=== PATIENT | male | born 1995 | race Asian ===

== ENCOUNTER 2018-04-20 17:22 | Emergency (ER) | payer OTHER ==
[2018-04-20] MEDS ORDERED: TDAP ADULT 0.5 ML INJ (BOOSTRIX) IM ONE (18:55)
--- NOTE | 2018-04-20 18:55 | EDPHY ---
H & P Stated Complaint: CUT L ELBOW SKIING Time Seen by Provider: 04/20/18 18:54 HPI/ROS: HPI: This is a 22-year-old male who presents with Chief Complaint: CUT L ELBOW SKIING Location: Left elbow Quality: Injury Duration: 2-4 hours prior to arrival Signs and Symptoms: + bleeding, no radiation, no numbness, no weakness, no tingling, no incontinence, no decreased range of motion, no swelling, + pain, no fever Timing: Acute Severity: Moderate Context: Patient is right-hand dominant, student at [employer], presents with injury to left elbow 2-4 hours prior to arrival while skiing. Patient reports that he fell directly onto his left elbow. Reports immediate, constant, nonradiating pain. Denies LOC/head injury/neck pain/ dizziness/nausea/vomiting/amnesia. Unsure of tetanus status. Patient cut his left elbow with moderate bleeding through his ski jacket. patroller placed Steri-Strips and advised him to go to the emergency room for further evaluation. Denies paresthesias, weakness. Modifying Factors: Direct pressure and Steri-Strips Comment: ROS: A comprehensive 10 system review of systems is otherwise negative aside from elements mentioned in the history of present illness. MEDICAL/SURGICAL/SOCIAL HISTORY: Medical history: Generally healthy. Does not take any regular medications. Surgical history: Denies Social history: Never smoked. Denies drug and alcohol use. CONSTITUTIONAL: Polite and cooperative young adult male, awake and alert , no obvious distress HEENT: Atraumatic and normocephalic. NECK: supple, no midline tenderness, flexion 45 degrees, extension 45 degrees, right and left lateral flexion 45 degrees. No meningismus. Cardiovascular: Normal S1/S2, regular rate, regular rhythm, without murmur rub or gallop. PULMONARY/CHEST: Symmetrical and nontender. no crepitus. Clear to auscultation bilaterally. Good air movement. No accessory muscle usage. ABDOMEN: Soft, nondistended, nontender, no ecchymosis. EXTREMITIES: 2/2 pulses, strength 5/5, left ELBOW: 4.5 cm C-shaped laceration ; Full extension to 180, flexion to 150, no tenderness over medial epicondyle , no tenderness over lateral epicondyle, no effusion. DIP/PIP/MCP flexion/ extension intact with good light touch sensation. no deformities, no clubbing, no cyanosis or edema. NEUROLOGICAL: no focal neuro deficits. GCS 15. Light touch sensation intact. SKIN: Warm and dry, no erythema. no rash. Good capillary refill. Source: Patient Exam Limitations: No limitations - Personal History Current Tetanus Diphtheria and Acellular Pertussis (TDAP): Unsure - Medical/Surgical History Hx Asthma: No Hx Chronic Respiratory Disease: No Hx Diabetes: No Hx Cardiac Disease: No Hx Renal Disease: No Hx Cirrhosis: No Hx Alcoholism: No Hx HIV/AIDS: No Hx Splenectomy or Spleen Trauma: No Other PMH: DENIES - Social History Smoking Status: Never smoked Constitutional: Initial Vital Signs Temperature (C) 36.6 C 04/20/18 17:28 Heart Rate 90 04/20/18 17:28 Respiratory Rate 18 04/20/18 17:28 Blood Pressure 129/87 H 04/20/18 17:28 O2 Sat (%) 96 04/20/18 17:28 O2 Delivery Mode Room Air Allergies/Adverse Reactions: No Known Allergies Allergy (Unverified 04/20/18 17:28) Home Medications: Medication Instructions Recorded NK [No Known Home Meds] 04/20/18 Medical Decision Making - Diagnostics Imaging Results: Imaging Impressions Elbow X-Ray 04/20/18 18:56 Impression: No acute fracture or effusion. Procedures: Procedure: Laceration repair. Verbal consent was obtained from the patient. The 4.5 cm, C-shaped, deep, simple laceration on the left elbow was anesthetized in the usual fashion using 6 mL of 1% lidocaine with epinephrine. The wound was irrigated, draped and explored to its base with a gloved finger. There were no deep structures involved. No tendon injury was identified. The wound was repaired with #10, 5- 0 Prolene in a simple interrupted pattern. Hemostasis was achieved and patient tolerated procedure well. Xeroform and clean sterile bulky dressing applied. The procedure was performed by myself. ED Course/Re-evaluation: Left elbow x-ray ordered and my read shows no fracture, dislocation. Tetanus booster ordered but patient politely declined Local anesthesia applied; copiously irrigated Laceration repaired Xeroform and clean sterile dressing applied. Verbal and written wound care instructions provided. No signs of neurovascular compromise/tenting of skin/compartment syndrome/ extremities and joints examined above and below area of concern and are neurovascularly intact. This patient was seen under the supervision of my secondary supervising physician. I evaluated care for this patient independently. Discussed this patient with Dr. Sinclair who did not see the patient. Differential Diagnosis: Differential diagnosis includes but is not limited to olecranon fracture, radial head fracture, ulna head fracture, distal humerus fracture, laceration, nerve injury, tendon injury. - Data Points Medications Given: Discontinued Medications Diphtheria/Tetanus/Acell Pertussis (Boostrix) 0.5 ml IM .ONCE ONE Stop: 04/20/18 18:56 Last Admin: 04/20/18 19:43 Dose: Not Given Departure - Departure Disposition: Home, Routine, Self-Care Clinical Impression: Laceration of left elbow without complication Qualifiers: Encounter type: initial encounter Qualified Code(s): S51.012A - Laceration without foreign body of left elbow, initial encounter Condition: Good Instructions: Laceration (ED), Care For Your Stitches (ED) Additional Instructions: Keep the dressing dry and in place for 48 hours. After 48 hours, you may remove the dressing; wash the site daily with mild soap and water; then pat dry. Take Tylenol 650 mg every 4 hours and/or Ibuprofen 600 mg every 8 hours with food as needed for pain. Apply ice for 30 minutes at a time; 2-3 times per day for the next 1-2 days. The x-rays obtained in the emergency department today demonstrate no evidence of an obvious fracture. Sometimes fractures are not obvious on the initial set of x-rays performed in the ED. For this reason, you should have repeat x-rays performed in 7-10 days if you are having any pain exclude the possibility of an occult fracture. Wound Care Follow-Up: Removal of sutures in [10-14] days. Suture removal is complimentary in uncomplicated cases. Infection or abnormal findings would require reevaluation by the MD. In that case, you may be billed. Referrals: PEL[facility] Taylor,. [Clinic] - As per Instructions
[2018-04-20 20:07] VITALS: BP 133/96
== END 2018-04-20 20:05 | disposition home or self-care (01) ==
PROC: 0HQEXZZ Repair Left Lower Arm Skin, External Approach (ICD-10-PCS; principal; 2018-04-20)
DX: S51.012A Laceration without foreign body of left elbow, initial encounter (principal); V00.321A Fall from snow-skis, initial encounter; Y92.838 Other recreation area as the place of occurrence of the external cause; Y93.23 Activity, snow (alpine) (downhill) skiing, snowboarding, sledding, tobogganing and snow tubing; Z23 Encounter for immunization